=== PATIENT | female | born 1980 | race Two or more races ===

== ENCOUNTER 2020-06-24 09:33 | Emergency (ER) | payer OTHER ==
[~2020-06-24] VITALS: Ht 167.6 cm; Wt 66.2 kg
[2020-06-24] MEDS ORDERED: SYNTHROID75 MCG PO (09:42)
[2020-06-24] MEDS ORDERED: RISPERDAL1 MG PO (09:44)
[2020-06-24] MEDS ORDERED: PEPCID AC20 MG PO (14:18)
[2020-06-24] MEDS ORDERED: KETO10TA2 PO (14:18)
[2020-06-24] MEDS ORDERED: ZOFRAN8 MG PO (14:18)
== END 2020-06-24 15:22 | disposition home or self-care (01) ==
LOC: ER 09:33
DX: N94.6 Dysmenorrhea, unspecified (principal); R11.11 Vomiting without nausea

== ENCOUNTER 2020-06-29 09:23 | Emergency (ER) | payer OTHER ==
[~2020-06-29] VITALS: Ht 167.6 cm; Wt 69.9 kg
[~2020-06-29 09:23] MED LIST: KETO10TA2 PO; PEPCID AC20 MG PO; RISPERDAL1 MG PO; SYNTHROID75 MCG PO; ZOFRAN8 MG PO
[2020-06-30] MEDS ORDERED: METFORMIN HCL500 M3 PO (11:29)
== END 2020-06-30 12:00 | disposition home or self-care (01) ==
LOC: ER 09:23
DX: E11.65 Type 2 diabetes mellitus with hyperglycemia (principal); E11.10 Type 2 diabetes mellitus with ketoacidosis without coma; E83.42 Hypomagnesemia; Z79.84 Long term (current) use of oral hypoglycemic drugs

== ENCOUNTER 2022-01-23 13:21 | Emergency (ER) | payer OTHER ==
[~2022-01-23] VITALS: Ht 165.1 cm; Wt 72.6 kg
[~2022-01-23 13:21] MED LIST changes: +METFORMIN HCL500 M3 PO
[2022-01-23] MEDS ORDERED: GLIPIZIDE ER10 MG (13:29)
[2022-01-23] MEDS ORDERED: TRAZODONE HCL50 MG (13:29)
== END 2022-01-23 18:10 | disposition left against medical advice (07) ==
LOC: ER 13:21
DX: R51.9 Headache, unspecified (principal); E78.00 Pure hypercholesterolemia, unspecified; I10 Essential (primary) hypertension; E11.9 Type 2 diabetes mellitus without complications; Z79.84 Long term (current) use of oral hypoglycemic drugs; Z88.6 Allergy status to analgesic agent